=== PATIENT | female | born 1955 | race Hispanic/Latino ===

== ENCOUNTER 2017-12-11 19:48 | Emergency (ER) | payer OTHER ==
[2017-12-11] MEDS ORDERED: DEXAMETHASONE SOD PHOSPHATE 10MG/ML 1ML VIAL ONE (21:47)
[2017-12-11] MEDS ORDERED: KETOROLAC TROMETHAMINE 30MG/ML ONE (21:47)
== END 2017-12-11 22:17 | disposition home or self-care (01) ==
LOC: EDH 19:48
DX: M25.562 Pain in left knee (principal); M79.89 Other specified soft tissue disorders; Z88.0 Allergy status to penicillin
CPT/HCPCS: 73562; 73590; 96372 ×2; 99284; J1100; J1885